=== PATIENT | male | born 1965 | race Caucasian/White ===

== ENCOUNTER 2018-08-06 10:55 | Inpatient (IN) | payer OTHER ==
[~2018-08-06] VITALS: Ht 177.8 cm; Wt 74.4 kg
[2018-08-06 12:00] VITALS: BP 122/85
[2018-08-06] MEDS ORDERED: GLUCOTROL10 MG PO (12:43)
[2018-08-06] MEDS ORDERED: LANTUS SOL100 UNIT/1 SC (12:44)
[2018-08-06] MEDS ORDERED: COZAAR50 M1 PO (12:44)
[2018-08-06] MEDS ORDERED: ZOLOFT50 MG PO (12:45)
--- NOTE | 2018-08-06 12:51 | NUR ---
PATIENT MEETS [facility]. CINA=17. PATIENT WANTS OUTPATIENT TREATMENT IN HIS AREA. [place] STAFF WILL FOLLOW UP WITH PATIENT WITH REFERRAL OPTIONS IN HIS AREA. SHAVONNE SALAZAR B.A. ASSISTANT ATTORNEY GENERAL
--- NOTE | 2018-08-06 12:58 | NUR ---
MSADMTime: N A 53 year old MALE admitted to under services of AURELIA IRAHETA DO. Pt. arrived via ambulatory from [place]. Chief complaint: SUBSTANCE ABUSE. INGE SHAH
[2018-08-06 13:42] LABS: BASO % 0.4 % (0.0-1.0); EOS # 0.1 10*3/uL (0.0-0.4); EOS % 1.2 % (1.0-4.0); HEMOGLOBIN 14.2 g/dl (14.0-18.0); LYMPH # 1.5 10*3/uL (1.3-4.4); LYMPH % 30.1 % (27.0-41.0); MEAN CELL VOLUME 94.5 fl (80.0-94.0); MEAN CORPUSCULAR HGB 32.7 pg (27.0-31.0); MEAN CORPUSCULAR HGB CONC 34.6 g/dl (33.0-37.0); MEAN PLATELET VOLUME 10.4 fl (9.6-12.3); MONO # 0.2 10*3/uL (0.1-1.0); MONO % 4.1 % (3.0-9.0); NEUT # 3.3 10*3/uL (2.3-7.9); PLATELET COUNT AUTOMATED 144 10*3/uL (130-400); RED BLOOD COUNT 4.34 10*6/uL (4.50-5.90); RED CELL DISTRI WIDTH 12.2 % (0-14.5); WHITE BLOOD COUNT 5.1 10*3/uL (4.8-10.8)
--- NOTE | 2018-08-06 13:44 | NUR ---
PRN MEDS GIVEN FOR MULTIPLE COMPLAINTS. SEE MAR.
[2018-08-06 14:00] LABS: ALBUMIN 4.3 gm/dl (3.1-4.5); ALKALINE PHOSPHATASE 55 U/L (45-117); BUN 15 mg/dl (7-24); CHLORIDE 104 mmol/L (98-107); CREATININE 1.04 mg/dL (0.70-1.30); ETHYL ALCOHOL < 3.0 mg/dl (<3); POTASSIUM 4.1 mmol/L (3.5-5.1); SGOT/AST 6 IU/L (3-35); SGPT/ALT 18 U/L (12-78); SODIUM 139 mmol/L (136-145); TOTAL PROTEIN 7.6 gm/dL (6.4-8.2)
[2018-08-06 14:11] LABS: BILIRUBIN NEGATIVE (NEGATIVE); BLOOD NEGATIVE (NEGATIVE); CLARITY SL CLOUDY (CLEAR); COLOR YELLOW (YELLOW); GLUCOSE 2+ (NEGATIVE); KETONE NEGATIVE (NEGATIVE); LEUKO ESTERASE NEGATIVE (NEGATIVE); NITRITE NEGATIVE (NEGATIVE); UROBILINOGEN 0.2 E.U./dl (0.2-1.0)
[2018-08-06 14:20] LABS: URINE AMPHETAMINES < 1000 (1000ng/ml); URINE BARBITURATES < 200 (200ng/ml); URINE BENZODIAZEPINES < 200 (200ng/ml); URINE CANNABINOIDS (THC) > 50 (50ng/ml); URINE COCAINE < 300 (300ng/ml); URINE METHADONE < 300 (300ng/ml); URINE OPIATES > 300 (300ng/ml)
[2018-08-06 14:21] LABS: BACTERIA TRACE; EPITHELIAL CELLS 0-2; RBC 0-2 rbc/hpf (0-2); URINE PHENCYCLIDINE < 25 (25ng/ml); WBC 0-2 wbc/hpf (0-5)
[2018-08-06 16:00] VITALS: BP 132/79
--- NOTE | 2018-08-06 19:04 | NUR ---
PATIENT RESTING IN BED WATCHING TV. PARTICIPATES IN REPORT. DENIES ANY NEEDS OR COMPLAINTS AT THIS TIME. BED IS IN LOWEST POSITION WITH WHEELS LOCKED. CALL LIGHT IS WITHIN REACH. WILL MONITOR.
[2018-08-06 20:00] VITALS: BP 129/84; BP 151/83
--- NOTE | 2018-08-06 20:47 | NUR ---
DR HEARD NOTIFIED MED REC UP TO DATE VIA PATIENT.
--- NOTE | 2018-08-06 22:29 | NUR ---
PRN MOTRIN AND ROBAXIN GIVEN FOR COMPLAINTS OF MUSCLE ACHES AND PAIN. WILL EVALUATE EFFECTIVENESS. CALL LIGHT IS WITHIN REACH.
--- NOTE | 2018-08-06 22:35 | NUR ---
PRN TRAZADONE GIVEN FOR COMPLAINTS OF INSOMNIA. WILL EVALUATE EFFECTIVENESS. CALL LIGHT IN REACH.
--- NOTE | 2018-08-06 23:05 | NUR ---
EXTRA DOSE OF PRN TRAZADONE GIVEN. PATIENT STATES THAT 1ST DOSE OF TRAZADONE WAS INEFFECTIVE. WILL EVALUATE EFFECTIVENESS. CALL LIGHT IS WITHIN REACH.
[2018-08-07] VITALS: BP 105/73
[2018-08-07 04:00] VITALS: BP 95/52
--- NOTE | 2018-08-07 04:35 | NUR ---
PATIENT RESTING IN BED WITH EYES CLOSED. RESPIRATIONS ARE EASY AND REGULAR. NO DISTRESS IS NOTED. CALL LIGHT IS WITHIN REACH. WILL MONITOR.
[2018-08-07 08:00] VITALS: BP 90/51
[2018-08-07 12:00] VITALS: BP 119/73
--- NOTE | 2018-08-07 13:03 | NUR ---
ROBAXIN GIVEN FOR C/O MUSCLE ACHES, REQUIP GIVEN FOR C/O RESTLESS LEGS, MOTRIN GIVEN FOR C/O HEADACHE. WILL MONITOR.
--- NOTE | 2018-08-07 14:10 | NUR ---
REQUIP, ROBAXIN AND MOTRIN EFFECTIVE PER PT.
[2018-08-07 16:00] VITALS: BP 126/77
[2018-08-07 20:00] VITALS: BP 124/80
--- NOTE | 2018-08-07 21:02 | NUR ---
PRN ROBAXIN AND MOTRIN GIVEN FOR COMPLAINTS OF MUSCLE PAIN. WILL EVALUATE EFFECTIVENESS. CALL LIGHT IN REACH.
[2018-08-08] VITALS: BP 113/85
[2018-08-08 08:00] VITALS: BP 125/77
--- NOTE | 2018-08-08 08:55 | NUR ---
PT MEDICATED WITH PO ROBAXIN AND MOTRIN PER PRN ORDER FOR C/O MUSCLE ACHES AND PAIN/DISCOMFORT. WILL MONITOR EFFECTIVENESS.
--- NOTE | 2018-08-08 10:28 | NUR ---
Patient resting. Responding to scheduled medications with fewer complaints of pain and anxiety.
--- NOTE | 2018-08-08 11:28 | NUR ---
BSG 187. 3 UNITS OF INSULIN GIVEN PER SLIDING SCALE.
[2018-08-08 12:00] VITALS: BP 142/78
--- NOTE | 2018-08-08 13:38 | NUR ---
PT MEDICATED WITH PO SENAKOT PER PRN ORDER FOR C/O CONSTIPATION. WILL MONITOR EFFECTIVENESS.
[2018-08-08 16:00] VITALS: BP 147/88
--- NOTE | 2018-08-08 17:25 | NUR ---
RANDY EFFECTIVE PER PT.
--- NOTE | 2018-08-08 19:13 | NUR ---
PATIENT RESTING IN BED WATCHING TV AT THIS TIME. PATIENT STATES "WENDI BEEN FEELING PRETTY GOOD TODAY". DENIES ANY NEEDS OR COMPLAINTS AT THIS TIME. BED IS IN LOWEST POSITION WITH WHEELS LOCKED. CALL LIGHT IS WITHIN REACH. WILL MONITOR.
[2018-08-08 20:00] VITALS: BP 127/88
--- NOTE | 2018-08-08 21:08 | NUR ---
PRN ROBAXIN AND MOTRIN GIVEN FOR COMPLAINTS OF MUSCLE PAIN. WILL EVALUATE EFFECTIVENESS. CALL LIGHT IS WITHIN REACH.
--- NOTE | 2018-08-08 22:15 | NUR ---
PATIENT STATES ROBAXIN AND MOTRIN EFFECTIVE. NO FURTHER NEEDS AT THIS TIME. WILL MONITOR.
--- NOTE | 2018-08-08 23:21 | NUR ---
PRN TRAZADONE GIVEN FOR COMPLAINTS OF INSOMNIA. WILL EVALUATE EFFECTIVENESS. CALL LIGHT IS WITHIN REACH.
[2018-08-09] VITALS: BP 124/78
--- NOTE | 2018-08-09 04:10 | NUR ---
PATIENT RESTING IN BED WITH EYES CLOSED. RESPIRATIONS ARE EASY AND REGULAR. NO DISTRESS IS NOTED. CALL LIGHT IS WITHIN REACH. WILL MONITOR.
--- NOTE | 2018-08-09 06:05 | NUR ---
PRN ROBAXIN AND MOTRIN GIVEN ON REQUEST FOR MUSCLE PAIN. WILL EVALUATE EFFECTIVENESS. CALL LIGHT IS WITHIN REACH.
[2018-08-09 06:26] LABS: BASO % 0.5 % (0.0-1.0); EOS # 0.1 10*3/uL (0.0-0.4); HEMATOCRIT 39.6 % (42.0-52.0); HEMOGLOBIN 13.4 g/dl (14.0-18.0); LYMPH # 3.2 10*3/uL (1.3-4.4); LYMPH % 53.5 % (27.0-41.0); MEAN CORPUSCULAR HGB 32.1 pg (27.0-31.0); MEAN CORPUSCULAR HGB CONC 33.8 g/dl (33.0-37.0); MEAN PLATELET VOLUME 10.9 fl (9.6-12.3); MONO # 0.2 10*3/uL (0.1-1.0); MONO % 3.5 % (3.0-9.0); NEUT # 2.4 10*3/uL (2.3-7.9); NEUT % 40.2 % (47.0-73.0); PLATELET COUNT AUTOMATED 135 10*3/uL (130-400); RED BLOOD COUNT 4.17 10*6/uL (4.50-5.90)
[2018-08-09 06:39] LABS: CREATININE 0.97 mg/dL (0.70-1.30)
[2018-08-09 08:00] VITALS: BP 132/83
--- NOTE | 2018-08-09 08:30 | NUR ---
Patient resting quietly with no c/o discomfort. Respirations easy and regular. Vital signs stable. No overt distress. ALONZO LIU R
[2018-08-09] MEDS ORDERED: METHOCARBAMOL750 M1 PO (10:58)
[2018-08-09] MEDS ORDERED: THERA TABLET400 MCG PO (10:58)
[2018-08-09] MEDS ORDERED: NATURE'S BLEND100 M2 PO (10:58)
[2018-08-09] MEDS ORDERED: NATURE'S BLEND F1 MG PO (10:58)
--- NOTE | 2018-08-09 11:14 | NUR ---
PATIENT IS GOING TO FOLLOW UP WITH [facility] FOR HIS AFTERCARE PLAN. PATIENT AGREES AND UNDERSTANDS HIS AFTERCARE PLAN. SHAVONNE SALAZAR B.A. JOURNEYMAN OPERATOR ASSISTANT
[2018-08-09] MEDS ORDERED: MOTRIN 600 MG E4 TAB PO (11:54)
[2018-08-09] MEDS ORDERED: TRAZODONE50 MG PO (11:54)
[2018-08-09] MEDS ORDERED: SERTRALINE HYDR50 MG PO (11:54)
[2018-08-09 12:00] VITALS: BP 132/83
--- NOTE | 2018-08-09 12:00 | NUR ---
PRN ROBAXIN AND MOTRIN GIVEN FOR C/O BODY ACHES AND GENERALIZED PAIN. CALL LIGHT IN REACH. WILL MONITOR
--- NOTE | 2018-08-09 13:00 | NUR ---
Patient resting. Responding to scheduled medications with fewer complaints of pain
--- NOTE | 2018-08-09 14:20 | NUR ---
Discharge instructions reviewed with patient/family. Patient receptive and verbalizes understanding. Follow-up care arranged. Written instructions given to patient/family. ALONZO LIU
== END 2018-08-09 14:20 | disposition home or self-care (01) | DRG 897 ==
LOC: 4E 10:55
PROVIDERS: Student in an Organized Health Care Education/Training Program; ADMIT Internal Medicine
DX: F11.23 Opioid dependence with withdrawal (principal); F12.10 Cannabis abuse, uncomplicated; G89.29 Other chronic pain; M54.9 Dorsalgia, unspecified; E11.65 Type 2 diabetes mellitus with hyperglycemia; F41.9 Anxiety disorder, unspecified; K59.00 Constipation, unspecified; I10 Essential (primary) hypertension; E78.5 Hyperlipidemia, unspecified; F17.210 Nicotine dependence, cigarettes, uncomplicated; M54.5 Low back pain; Z82.3 Family history of stroke; Z71.6 Tobacco abuse counseling; Z82.49 Family history of ischemic heart disease and other diseases of the circulatory system; Z79.4 Long term (current) use of insulin; Z80.0 Family history of malignant neoplasm of digestive organs; Z80.1 Family history of malignant neoplasm of trachea, bronchus and lung; Z88.9 Allergy status to unspecified drugs, medicaments and biological substances

== ENCOUNTER 2019-04-06 15:01 | Inpatient (IN) | payer OTHER ==
[~2019-04-06] VITALS: Ht 180.3 cm; Wt 71.2 kg
[~2019-04-06 15:01] MED LIST: COZAAR50 M1 PO; GLUCOTROL10 MG PO; LANTUS SOL100 UNIT/1 SC; METHOCARBAMOL750 M1 PO; MOTRIN 600 MG E4 TAB PO; NATURE'S BLEND F1 MG PO; NATURE'S BLEND100 M2 PO; SERTRALINE HYDR50 MG PO; THERA TABLET400 MCG PO; TRAZODONE50 MG PO; ZOLOFT50 MG PO
--- NOTE | 2019-04-06 16:53 | NUR ---
PATIENT MEETS [facility]. CINA=17. PATIENT WANTS TO FOLLOW UP WITH EITHER [facility] OR [facility] FOR MEDICATION ASSISTED TREATMENT. [place] STAFF WILL FOLLOW UP WITH PATIENT. SHAVONNE SALAZAR B.A. CARNA[employer]ITE PLANT OPERATOR
[2019-04-06 17:15] VITALS: BP 149/94
--- NOTE | 2019-04-06 17:15 | NUR ---
53 year old MALE admitted to room # 416-1 for stabilization. 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 Compliant with admission procedure. Patient denies any anxiety, but is unable to sit still, taps toes to floor continuously, looks about room, unable to focus eyes on nurse during interview. See assessment forms for additional information about patient status.
[2019-04-06] MEDS ORDERED: JARDIANCE10 MG PO (17:39)
[2019-04-06] MEDS ORDERED: TRULICITY1.5 MG/0.5 SC (17:40)
[2019-04-06] MEDS ORDERED: MOTRIN 600 MG E4 TAB PO (17:42)
[2019-04-06] MEDS ORDERED: CRESTOR10 M1 PO (17:43)
[2019-04-06] MEDS ORDERED: VITAMIN D-32000 UNI1 PO (17:43)
[2019-04-06] MEDS ORDERED: XYZAL5 M1 PO (17:44)
--- NOTE | 2019-04-06 18:41 | NUR ---
DR ESTRADA MADE AWARE OF UPDATED MED REC.
[2019-04-06 19:05] LABS: BASO % 0.3 % (0.0-1.0); EOS # 0.1 10*3/uL (0.0-0.4); EOS % 1.2 % (1.0-4.0); HEMATOCRIT 44.4 % (42.0-52.0); HEMOGLOBIN 15.2 g/dl (14.0-18.0); LYMPH # 2.1 10*3/uL (1.3-4.4); LYMPH % 28.6 % (27.0-41.0); MEAN CELL VOLUME 95.3 fl (80.0-94.0); MEAN CORPUSCULAR HGB 32.6 pg (27.0-31.0); MEAN CORPUSCULAR HGB CONC 34.2 g/dl (33.0-37.0); MEAN PLATELET VOLUME 10.5 fl (9.6-12.3); MONO # 0.3 10*3/uL (0.1-1.0); MONO % 4.3 % (3.0-9.0); NEUT # 4.7 10*3/uL (2.3-7.9); NEUT % 65.3 % (47.0-73.0); PLATELET COUNT AUTOMATED 190 10*3/uL (130-400); RED BLOOD COUNT 4.66 10*6/uL (4.50-5.90); RED CELL DISTRI WIDTH 12.1 % (0-14.5); WHITE BLOOD COUNT 7.2 10*3/uL (4.8-10.8)
[2019-04-06 19:07] LABS: BILIRUBIN NEGATIVE (NEGATIVE); BLOOD NEGATIVE (NEGATIVE); CLARITY CLEAR (CLEAR); COLOR YELLOW (YELLOW); GLUCOSE 3+ (NEGATIVE); KETONE 1+ (NEGATIVE); LEUKO ESTERASE NEGATIVE (NEGATIVE); NITRITE NEGATIVE (NEGATIVE); UROBILINOGEN 0.2 E.U./dl (0.2-1.0)
[2019-04-06 19:15] LABS: URINE AMPHETAMINES < 1000 (1000ng/ml); URINE BARBITURATES < 200 (200ng/ml); URINE BENZODIAZEPINES < 200 (200ng/ml); URINE CANNABINOIDS (THC) > 50 (50ng/ml); URINE COCAINE < 300 (300ng/ml); URINE METHADONE < 300 (300ng/ml); URINE OPIATES > 300 (300ng/ml); URINE PHENCYCLIDINE < 25 (25ng/ml)
[2019-04-06 19:18] LABS: ALBUMIN 4.9 gm/dl (3.1-4.5); ALKALINE PHOSPHATASE 60 U/L (45-117); BUN 18 mg/dl (7-24); CHLORIDE 103 mmol/L (98-107); CREATININE 1.08 mg/dL (0.70-1.30); POTASSIUM 4.1 mmol/L (3.5-5.1); SGOT/AST 9 IU/L (3-35); SGPT/ALT 20 U/L (12-78); SODIUM 139 mmol/L (136-145); TOTAL PROTEIN 8.4 gm/dL (6.4-8.2)
[2019-04-06 19:19] LABS: ETHYL ALCOHOL < 3.0 mg/dl (<3)
--- NOTE | 2019-04-06 19:25 | NUR ---
MEDICATED WITH REQUIP AND VISTARIL FOR ANXIETY AND RESTLESS LEGS, WILL MONITOR FOR EFFECTIVENESS.
[2019-04-06 20:00] VITALS: BP 139/90
--- NOTE | 2019-04-06 21:29 | NUR ---
MEDICATED WITH ZOFRAN AND TRAZADONE. WILL MONITOR.
--- NOTE | 2019-04-06 22:13 | NUR ---
MEDICATED WITH TRAZADONE FOR CONITNUED INSOMNIA. WILL MONITOR FOR EFFECTIVENESS,
[2019-04-07] VITALS: BP 124/84
--- NOTE | 2019-04-07 02:00 | NUR ---
MEDICATED WITH SUBUTEX PER STRAIGHT ORDER. PT. C/O INSOMNIA & BACK PAIN. MEDICATED WITH TYLENOL & VISTARIL FOR ANXIETY.
--- NOTE | 2019-04-07 03:38 | NUR ---
MEDICATED WITH MOTRIN FOR C/O LOW BACK PAIN & ROBAXIN FOR MUSCLE ACHES.
[2019-04-07 08:00] VITALS: BP 145/98
--- NOTE | 2019-04-07 08:08 | NUR ---
PATIENT C/O NAUSEA, MUSCLE ACHES, RESTLESS LEGS AND ANXIETY. PRN MEDS GIVEN AT THIS TIME PER ORDER. WILL MONITOR EFFECTIVENESS. CALL LIGHT WITHIN REACH.
--- NOTE | 2019-04-07 09:55 | NUR ---
IVF INITIATED AT THIS TIME. ALSO GIVEN IV PHENERGAN PER PRN ORDER FOR C/O NAUSEA. WILL MONITOR EFFECTIVENESS.
--- NOTE | 2019-04-07 10:49 | NUR ---
PATIENT STATES SOME RELIEF FROM EARLIER MEDICATIONS. WILL CONTINUE TO MONITOR.
[2019-04-07 12:00] VITALS: BP 130/76
--- NOTE | 2019-04-07 12:04 | NUR ---
NOTIFIED REGARDING PATIENT C/O NAUSEA AT THIS TIME. AWAITING PHYSICIAN ORDERS.
--- NOTE | 2019-04-07 12:30 | NUR ---
PATIENT GIVEN PO MAALOX AND MOTRIN FOR C/O NAUSEA AND ABD DISCOMFORT. PT DID NOT RECEIVE IV TORADOL DUE TO ALLERGY TO MEDICATION. WILL MONITOR EFFECTIVENESS.
--- NOTE | 2019-04-07 13:23 | NUR ---
PATIENT SLEEPING QUIETLY IN BED. NO DISTRESS NOTED. EARLIER MEDS APPEAR EFFECTIVE AT THIS TIME. WILL CONTINUE TO MONITOR.
--- NOTE | 2019-04-07 14:34 | NUR ---
PATIENT IS WANTING TO FOLLOW UP WITH [facility] FOR HIS AFTERCARE PLAN. SHAVONNE SALAZAR B.A. DEPARTMENT CLINICIAN
--- NOTE | 2019-04-07 15:04 | NUR ---
PT GIVEN PO ROBAXIN, BENTYL AND ZOFRAN PER PRN ORDER. WILL MONITOR EFFECTIVENESS.
[2019-04-07 16:00] VITALS: BP 146/96
--- NOTE | 2019-04-07 16:05 | NUR ---
Patient resting. Responding to scheduled medications with fewer complaints of abd cramps and nausea. Will continue to monitor.
[2019-04-07 20:00] VITALS: BP 153/90
--- NOTE | 2019-04-07 20:00 | NUR ---
RESTING IN BED WITH EYES CLOSED. NO DISTRESS NOTED. CALL LIGHT WITHIN REACH.
[2019-04-07 21:00] VITALS: BP 153/90
[2019-04-08] VITALS: BP 151/93
--- NOTE | 2019-04-08 04:00 | NUR ---
RESTING IN BED; VOICES NO C/O. CALL LIGHT WITHIN REACH.
[2019-04-08 07:35] LABS: THYROID STIM HORMONE (HS) 0.39 uIU/ml (0.358-4.75)
[2019-04-08 08:00] VITALS: BP 132/74
--- NOTE | 2019-04-08 12:02 | NUR ---
PATIENT DECIDED THAT HE WANTS TO FOLLOW UP WITH [facility] FOR MEDICATION-ASSISTED TREATMENT. PATIENT IS GOING TO FOLLOW UP WITH THEM ON THURSDAY, AT NOON. PATIENT AGREES AND UNDERSTANDS HIS AFTERCARE PLAN. SHAVONNE SALAZAR B.A. ACCOUNTING SPECIALIST
[2019-04-08 16:00] VITALS: BP 146/96
[2019-04-08 20:00] VITALS: BP 139/85
--- NOTE | 2019-04-08 20:21 | NUR ---
BENTYL GIVEN PER ORDER FOR COMPLAINTS OF STOMACH CRAMPS. WILL MONITOR EFFECTIVENESS.
--- NOTE | 2019-04-08 21:30 | NUR ---
PT STATES CESAR "HELPED MY STOMACH SOME" WILL CONTINUE TO ASSESS.
[2019-04-09] VITALS: BP 129/87
[2019-04-09 06:16] LABS: BASO % 0.2 % (0.0-1.0); EOS % 0.1 % (1.0-4.0); HEMATOCRIT 50.2 % (42.0-52.0); HEMOGLOBIN 17.5 g/dl (14.0-18.0); LYMPH # 1.8 10*3/uL (1.3-4.4); LYMPH % 9.4 % (27.0-41.0); MEAN CELL VOLUME 93.8 fl (80.0-94.0); MEAN CORPUSCULAR HGB 32.7 pg (27.0-31.0); MEAN CORPUSCULAR HGB CONC 34.9 g/dl (33.0-37.0); MEAN PLATELET VOLUME 10.8 fl (9.6-12.3); MONO # 1.1 10*3/uL (0.1-1.0); MONO % 5.7 % (3.0-9.0); NEUT # 16.1 10*3/uL (2.3-7.9); NEUT % 84.1 % (47.0-73.0); PLATELET COUNT AUTOMATED 231 10*3/uL (130-400); RED BLOOD COUNT 5.35 10*6/uL (4.50-5.90); RED CELL DISTRI WIDTH 12.4 % (0-14.5); WHITE BLOOD COUNT 19.1 10*3/uL (4.8-10.8)
[2019-04-09 06:18] LABS: CREATININE 1.04 mg/dL (0.70-1.30)
[2019-04-09 08:00] VITALS: BP 145/95
--- NOTE | 2019-04-09 08:29 | NUR ---
MEDICATED WITH PRN PO TYLENOL AND ROBAXIN FOR BACK ACHES, ALSO ZOFRAN AND BENTYL FOR NAUSEA/ABDOMINAL CRAMPS. ALSO ADMINISTERED SL SUBUTEX ORDERED AT THIS TIME.
[2019-04-09 08:30] VITALS: BP 134/80
--- NOTE | 2019-04-09 10:20 | NUR ---
Patient resting. Responding to scheduled and prn medications with fewer complaints of pain and nausea.
[2019-04-09 12:00] VITALS: BP 149/95
[2019-04-09 16:00] VITALS: BP 140/97
[2019-04-09 16:27] VITALS: BP 130/90
--- NOTE | 2019-04-09 16:27 | NUR ---
MEDICATED WITH PRN PO ROBAXIN AND TYLENOL FOR BACK ACHES, ALSO ZOFRAN AND BENTYL FOR NAUSEA AND ABDOMINAL CRAMPS.
--- NOTE | 2019-04-09 21:28 | NUR ---
MEDICATED WITH MAALOX FOR STOMACH DISCOMFORT.
--- NOTE | 2019-04-09 22:36 | NUR ---
MEDICATED WITH TYLENOL FOR GENERALIZED DISCOMFORT; ESPECIALLY BACK; ROBAXIN FOR MUSCLES ACHES; BENTYL FOR STOMACH DISCOMFORT, ZOFRAN FOR C/O NAUSEA, & TRAZODONE FOR INSOMNIA. WILL CONTINUE TO MONITOR EFFECTIVENESS OF PRN MEDICATIONS. CALL LIGHT WITHIN REACH.
[2019-04-10] VITALS: BP 117/69
--- NOTE | 2019-04-10 03:00 | NUR ---
REQUESTING MAALOX; INFORMED PATIENT THAT IT WAS TOO SOON. VERBALIZED UNDERSTANDING.
--- NOTE | 2019-04-10 04:30 | NUR ---
STATES MAAXLOX IS HELPFUL.
[2019-04-10 06:35] LABS: ALBUMIN 4.4 gm/dl (3.1-4.5); BUN 26 mg/dl (7-24); CHLORIDE 99 mmol/L (98-107); CREATININE 0.86 mg/dL (0.70-1.30); POTASSIUM 4.1 mmol/L (3.5-5.1); SGOT/AST 3 IU/L (3-35); SGPT/ALT 16 U/L (12-78); SODIUM 132 mmol/L (136-145)
[2019-04-10 06:37] LABS: ALKALINE PHOSPHATASE 58 U/L (45-117); TOTAL PROTEIN 7.6 gm/dL (6.4-8.2)
[2019-04-10 07:00] LABS: BASO % 0.2 % (0.0-1.0); EOS % 0.1 % (1.0-4.0); HEMATOCRIT 50.4 % (42.0-52.0); HEMOGLOBIN 17.4 g/dl (14.0-18.0); LYMPH # 2.9 10*3/uL (1.3-4.4); LYMPH % 16.9 % (27.0-41.0); MEAN CELL VOLUME 93.7 fl (80.0-94.0); MEAN CORPUSCULAR HGB 32.3 pg (27.0-31.0); MEAN CORPUSCULAR HGB CONC 34.5 g/dl (33.0-37.0); MEAN PLATELET VOLUME 11.2 fl (9.6-12.3); MONO # 1.1 10*3/uL (0.1-1.0); MONO % 6.6 % (3.0-9.0); NEUT # 12.9 10*3/uL (2.3-7.9); NEUT % 75.6 % (47.0-73.0); PLATELET COUNT AUTOMATED 209 10*3/uL (130-400); RED BLOOD COUNT 5.38 10*6/uL (4.50-5.90); RED CELL DISTRI WIDTH 12.1 % (0-14.5); WHITE BLOOD COUNT 17.1 10*3/uL (4.8-10.8)
[2019-04-10 08:00] VITALS: BP 145/83
[2019-04-10] MEDS ORDERED: DICYCLOMINE HCL20 MG PO (13:36)
[2019-04-10] MEDS ORDERED: MAG-AL PLUS 3030 ML PO (13:36)
--- NOTE | 2019-04-10 13:51 | NUR ---
Discharge instructions reviewed with patient/family. Patient receptive and verbalizes understanding. Follow-up care recommended for patient to find family physician. Written instructions given to patient/family. CLARISSE FOSTER
== END 2019-04-10 14:06 | disposition home or self-care (01) | DRG 897 ==
LOC: 4E 15:01
PROVIDERS: Emergency Medicine; Student in an Organized Health Care Education/Training Program; ADMIT Internal Medicine
DX: F11.23 Opioid dependence with withdrawal (principal); F41.9 Anxiety disorder, unspecified; F12.10 Cannabis abuse, uncomplicated; K59.00 Constipation, unspecified; E11.65 Type 2 diabetes mellitus with hyperglycemia; I10 Essential (primary) hypertension; M54.9 Dorsalgia, unspecified; G89.29 Other chronic pain; D75.89 Other specified diseases of blood and blood-forming organs; Z79.899 Other long term (current) drug therapy; Z79.4 Long term (current) use of insulin; Z82.49 Family history of ischemic heart disease and other diseases of the circulatory system; Z83.3 Family history of diabetes mellitus; Z80.1 Family history of malignant neoplasm of trachea, bronchus and lung; Z88.8 Allergy status to other drugs, medicaments and biological substances